=== PATIENT | female | born 2005 | race Caucasian/White ===

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

== ENCOUNTER 2024-10-11 11:02 | Emergency (ER) | payer BC, MEDICAID, OTHER ==
[2024-10-11 11:45] LABS: BASE EXCESS ARTERIAL 1.6 mm/L; BICARBONATE,ARTERIAL 23.7 mmol/L (22.0-26.0); CARBOXYHEMOGLOBIN 1.4 % (0.0-1.6); METHEMOGLOBIN 0.7 %; PCO2 ARTERIAL 30.8 mmHg (35.0-42.0); PO2 ARTERIAL 68.8 mmHg (75.0-100.0); TOTAL HEMOGLOBIN 13.3 g/dL (12.0-16.0)
[2024-10-11] MEDS: Sodium Chloride 0.9% 1,000 ML IV ONE (12:40)
[2024-10-11] MEDS: Ondansetron 4 MG/2 ML SDV IVPUSH ONE (12:41)
[2024-10-11] MEDS: cefTRIAXone 1 GM in Sodium Chloride 0.9% 50 ML IV ONE (12:44)
[2024-10-11] MEDS: Sodium Chloride 0.9% 50 ML ONE (12:47)
== END 2024-10-11 14:38 | disposition home or self-care (01) ==
LOC: JP.ED 11:02
DX: J10.00 Influenza due to other identified influenza virus with unspecified type of pneumonia (principal); E66.9 Obesity, unspecified; Z68.39 Body mass index [BMI] 39.0-39.9, adult; Z86.16 Personal history of COVID-19; Z79.899 Other long term (current) drug therapy
CPT/HCPCS: 36415; 36600; 82803; 83605; 84145; 87040; 96365; 96375; 99283; 99284; J0696; J2405; J3490; J7030

== ENCOUNTER 2025-03-10 09:36 | Emergency (ER) | payer OTHER | END 2025-03-10 11:31 | disposition left against medical advice (07) | LOC: JP.ED 09:36 | DX: Z53.21 Procedure and treatment not carried out due to patient leaving prior to being seen by health care provider (principal) ==